=== PATIENT | male | born 1975 | race African-American/Black ===

== ENCOUNTER 2020-07-23 15:36 | Emergency (ER) | payer OTHER ==
[~2020-07-23] VITALS: Ht 182.9 cm; Wt 68.0 kg
[2020-07-23 16:23] LABS: ABSOLUTE NEUTROPHILS 7.8 thou/uL (1.4-8.2); BASOPHILS 0.3 % (0.0-2.0); EOSINOPHILS 0.2 % (0.0-3.0); HEMATOCRIT 46.3 % (42.0-52.0); MCH 29.2 pg (26.0-34.0); MCHC 32.5 g/dL (28.0-37.0); MONOCYTES 4.4 % (1.0-8.0); PLATELET COUNT 208 thou/uL (150-400); POLYS 76.1 % (36.0-66.0); RBC 5.14 mil/uL (4.50-6.00); RDW 16.9 % (10.5-14.5); WBC 10.2 thou/uL (4.0-11.0)
[2020-07-23 16:34] LABS: ANION GAP 10 mmol/L (7-16); BUN 17 mg/dL (7-18); CALCIUM 9.2 mg/dL (8.5-10.1); CHLORIDE 107 mmol/L (98-107); CO2 27 mmol/L (21-32); CREATININE 1.4 mg/dL (0.7-1.3); GLUCOSE 96 mg/dL (74-106); POTASSIUM 4.1 mmol/L (3.5-5.1); SODIUM 144 mmol/L (136-145)
[2020-07-23 16:40] LABS: SGOT 15 U/L (15-37); SGPT 22 U/L (30-65); TOTAL BILIRUBIN 0.3 mg/dL (0.2-1.0); TOTAL PROTEIN 7.4 g/dL (6.4-8.2); TROPONIN-I <0.06 ng/mL (<0.06)
[2020-07-23] MEDS ORDERED: PROTONIX40 M2 PO (18:37)
[2020-07-23 18:48] VITALS: BP 143/97
--- NOTE | 2020-07-24 09:36 | EKG ---
[facility] [place] [address] ELECTROCARDIOGRAM REPORT Name: DAKOTAH GUPTA Room #: DEP Idalia#: [id number] Admission: 07/23/20 Attend Phys: Discharge: 07/23/20 Date of : 77 Report #: [id number] THIS REPORT FOR: cc: JOSELITO - Edith family physician/PCP JOSELITO - Edith family physician/PCP Javier Carvalho MD ~ THIS REPORT FOR: //name// [facility] ED Test Date: 2020-07-23 Test Time: 15:44:06 Pat Name: DAKOTAH GUPTA Department: Room: Gender: [place]: : 1975 Requested By: Gaurav Schmidt Order Number: [id number] : Javier Carvalho Measurements Intervals [place] Rate: 94 P: 67 ND: 174 QRS: -38 QRSD: 100 T: 37 QT: 346 QTc: 433 Interpretive Statements Sinus rhythm Left axis deviation RSR' in V1 or V2, probably normal variant No previous ECG available for comparison Electronically Signed On 07-24-2020 9:36:39 CDT by Javier Carvalho [email or web address] <ELECTRONICALLY SIGNED> By: Javier Carvalho MD 07/24/20 0936 1544 1544 Javier Carvalho MD /[email or web address]
== END 2020-07-23 18:49 | disposition home or self-care (01) ==
LOC: ER 15:36
PROVIDERS: Emergency Medicine
DX: R07.89 Other chest pain (principal); R63.1 Polydipsia; R06.02 Shortness of breath; R04.2 Hemoptysis; I10 Essential (primary) hypertension; J45.909 Unspecified asthma, uncomplicated; F17.210 Nicotine dependence, cigarettes, uncomplicated